=== PATIENT | female | born 1985 | race Caucasian/White ===

== ENCOUNTER → 2016-05-10 | Outpatient (CLI) | payer MEDICAID ==
[~2016-05-10] MED LIST: ANTIBIOTIC; BACTRIM DS 8001 TAB PO; CEFTIN 250250 MG/TAB PO; CEFTIN250 MG PO; CEFTIN500 MG PO; CEPHALEXIN500 M1 PO; CIPRO 500MG TA500 MG PO; CLEOCIN HC150 MG/CAP PO; IBU600 MG PO; LORTAB 5/500 501 TAB PO; MACROBID 1100 MG/CAP PO; MACROBID100 MG PO; MOTRIN 600600 MG/TAB PO; NAPROSYN500 MG PO; NO HOME MEDICATIONS; NORCO 325 MG-51 TAB PO; PERCOCET 325 MG1 TA2 PO; PREDNISONE20 MG PO; PRENATAL VITAMI1 TA5 PO; PRENATAL1 TA1 PO; PRENATAL1 TA7 PO; PYRIDIUM 100MG100 MG PO; PYRIDIUM200 M1 PO; SENOKOT S 50 MG1 TAB PO; VICODIN 5/5001 UDTAB PO; ZOFRAN 4MG T4 MG/TAB PO; ZOFRAN ODT4 MG PO
== END ==
LOC: COL.LAB 11:40
DX: O28.8 Other abnormal findings on antenatal screening of mother (principal); R76.8 Other specified abnormal immunological findings in serum; Z3A.34 34 weeks gestation of pregnancy

== ENCOUNTER 2016-06-09 20:46 | Inpatient (IN) | payer MEDICAID ==
[~2016-06-09] VITALS: Ht 167.6 cm; Wt 89.5 kg
[2016-06-09] VITALS (9 sets, daily range): BP systolic 104–121; BP diastolic 57–71; PULSE 86–103; TEMP 98–98.3
[2016-06-09 22:17] LABS: BASO # 0.1 (0.0-0.2); BASO % 0.4 % (0.0-2.0); EOS % 0.2 % (0-4.0); GRAN # 9.4 (1.4-6.5); LYMPH # 1.7 (1.2-3.4); LYMPH % 13.9 % (20.0-51.0); MEAN CELL VOLUME 94 fl (80.0-100.0); MEAN CORPUSCULAR HGB CONC 33 g/dl (33.0-37.0); MEAN PLATELET VOLUME 10.9 fl (7.4-10.4); MONO # 0.7 (0.1-0.6); MONO % 6.1 % (1.7-9.3); PLATELET COUNT 205 K/mm3 (130-400); RED BLOOD COUNT 3.56 M/mm3 (4.10-5.30); REDCELL DISTRIBUTION WIDTH-CV 14.8 % (11.5-14.5); WHITE BLOOD COUNT 12.1 K/mm3 (4.8-10.8)
[2016-06-09 22:20] LABS: HEMATOCRIT 33.5 % (37.0-47.0); HEMOGLOBIN 11.2 g/dl (12.5-16.0); MEAN CORPUSCULAR HEMOGLOBIN 31 pg (27.0-31.0)
[2016-06-09 22:39] LABS: AMPHETAMINE URINE NEGATIVE; BARBITURATES URINE NEGATIVE; BENZODIAZEPINES URINE NEGATIVE; BUPRENORPHINE URINE NEGATIVE; METHADONE URINE NEGATIVE; OPIATES URINE NEGATIVE; OXYCODONE URINE NEGATIVE; PHENCYCLIDINE URINE NEGATIVE; PROPOXYPHENE URINE NEGATIVE; THC CANNABINOIDS URINE POSITIVE
[2016-06-10] VITALS (12 sets, daily range): BP systolic 99–134; BP diastolic 54–76; PULSE 78–129; TEMP 97.2–98.2
== END 2016-06-10 19:55 | disposition home or self-care (01) | DRG 775 ==
LOC: LDRO 20:46 → LDR 21:15 → OB 06-10 04:00
PROVIDERS: Obstetrics & Gynecology
PROC: 10E0XZZ Delivery of Products of Conception, External Approach (ICD-10-PCS; principal; 2016-06-10)
DX: O77.0 Labor and delivery complicated by meconium in amniotic fluid (principal); O36.0130 Maternal care for anti-D [Rh] antibodies, third trimester, not applicable or unspecified; O99.324 Drug use complicating childbirth; F12.90 Cannabis use, unspecified, uncomplicated; O99.824 Streptococcus B carrier state complicating childbirth; O99.334 Smoking (tobacco) complicating childbirth; F17.210 Nicotine dependence, cigarettes, uncomplicated; O69.81X0 Labor and delivery complicated by cord around neck, without compression, not applicable or unspecified; O09.43 Supervision of pregnancy with grand multiparity, third trimester; Z3A.38 38 weeks gestation of pregnancy; Z37.0 Single live birth; Z59.0 Homelessness
CPT/HCPCS: J0690; J2590; J2791; J2795; J7120

== ENCOUNTER 2018-03-08 08:57 | Emergency (ER) | payer SELFPAY ==
[~2018-03-08] VITALS: Ht 165.1 cm; Wt 70.3 kg
[2018-03-08 09:01] VITALS: BP 123/68; TEMP 98
[2018-03-08 09:46] LABS: BASO % 0.5 % (0.0-2.0); EOS # 0.1 (0.0-0.7); EOS % 1.7 % (0-4.0); GRAN # 2.5 (1.4-6.5); HEMATOCRIT 41.2 % (37.0-47.0); HEMOGLOBIN 13.8 g/dl (12.5-16.0); LYMPH # 1.1 (1.2-3.4); LYMPH % 27.2 % (20.0-51.0); MEAN CELL VOLUME 93 fl (80.0-100.0); MEAN CORPUSCULAR HEMOGLOBIN 31 pg (27.0-31.0); MEAN CORPUSCULAR HGB CONC 34 g/dl (33.0-37.0); MONO # 0.4 (0.1-0.6); MONO % 9.4 % (1.7-9.3); PLATELET COUNT 234 K/mm3 (130-400); RED BLOOD COUNT 4.42 M/mm3 (4.10-5.30); REDCELL DISTRIBUTION WIDTH-CV 12.7 % (11.5-14.5)
[2018-03-08 09:48] LABS: COLLECTION METHOD CATHETER
[2018-03-08 09:59] LABS: MUCOUS Present /lpf; PH 5 (5-8); URINE APPEARANCE Hazy; URINE BACTERIA None Seen /hpf; URINE BILIRUBIN Negative (NEGATIVE); URINE BLOOD 2+ (NEGATIVE); URINE COLOR Yellow; URINE GLUCOSE Negative (NEGATIVE); URINE KETONE Negative (NEGATIVE); URINE LEUKOCYTE ESTERASE Negative (NEGATIVE); URINE NITRATE Negative (NEGATIVE); URINE PROTEIN(semi-quant) 1+ (NEGATIVE); URINE RBC 20-50 /hpf; URINE UROBILINOGEN Negative (NEGATIVE)
[2018-03-08 10:00] LABS: ALANINE AMINOTRANSFERASE 29 U/L (9-52); ALBUMIN 4.5 gm/dL (3.5-5.0); ALKALINE PHOSPHATASE 70 U/L (50-136); ANION GAP 9 mmol/L (7-16); AST,SGOT 23 U/L (15-37); BILIRUBIN,TOTAL 0.4 mg/dL (0.0-1.0); BLOOD UREA NITROGEN 18 mg/dL (7-17); CALCIUM 9.5 mg/dL (8.4-10.2); CARBON DIOXIDE 27 mmol/L (22-30); CHLORIDE 106 mmol/L (98-107); CREATININE, serum 0.59 mg/dL (0.52-1.25); GLUCOSE 97 mg/dL (74-106); SODIUM 142 mmol/L (137-145); TOTAL PROTEIN 8.2 gm/dL (6.4-8.2)
[2018-03-08 10:07] LABS: C-REACTIVE PROTEIN < 0.5 mg/dL (0.0-0.9)
[2018-03-08] MEDS ORDERED: PREDNISONE20 MG PO (10:54)
[2018-03-08] MEDS ORDERED: NORCO 325 MG-51 TAB PO (10:54)
[2018-03-08 11:22] VITALS: PULSE 93
== END 2018-03-08 11:23 | disposition home or self-care (01) ==
LOC: COL.ER 08:57
DX: M54.5 Low back pain (principal); F17.210 Nicotine dependence, cigarettes, uncomplicated; F12.90 Cannabis use, unspecified, uncomplicated; Z88.0 Allergy status to penicillin; Z88.2 Allergy status to sulfonamides
CPT/HCPCS: J1885; J7030

== ENCOUNTER 2018-10-18 10:20 | Emergency (ER) | payer SELFPAY ==
[~2018-10-18] VITALS: Ht 165.1 cm; Wt 79.5 kg
[2018-10-18 10:24] VITALS: BP 122/77; PULSE 102; TEMP 98.9
[2018-10-18] MEDS ORDERED: PRENATAL FORMU1 EAC3 PO (10:43)
== END 2018-10-18 11:19 | disposition left against medical advice (07) ==
LOC: COL.ER 10:20
DX: Z32.01 Encounter for pregnancy test, result positive (principal); F17.210 Nicotine dependence, cigarettes, uncomplicated; Z88.8 Allergy status to other drugs, medicaments and biological substances; Z88.0 Allergy status to penicillin

== ENCOUNTER 2018-10-18 12:41 | Emergency (ER) | payer SELFPAY ==
[~2018-10-18] VITALS: Ht 165.1 cm; Wt 79.5 kg
[~2018-10-18 12:41] MED LIST changes: +PRENATAL FORMU1 EAC3 PO
[2018-10-18 12:46] VITALS: BP 136/70; TEMP 98.3
[2018-10-18 13:10] LABS: BASO % 0.3 % (0.0-2.0); EOS # 0.1 (0.0-0.7); GRAN # 4.7 (1.4-6.5); GRAN % 74.3 % (42.2-75.2); LYMPH # 1.1 (1.2-3.4); LYMPH % 18.2 % (20.0-51.0); MEAN CELL VOLUME 92 fl (80.0-100.0); MEAN CORPUSCULAR HEMOGLOBIN 31 pg (27.0-31.0); MEAN CORPUSCULAR HGB CONC 34 g/dl (33.0-37.0); MEAN PLATELET VOLUME 9.1 fl (7.4-10.4); MONO # 0.4 (0.1-0.6); MONO % 5.9 % (1.7-9.3); PLATELET COUNT 203 K/mm3 (130-400); RED BLOOD COUNT 3.82 M/mm3 (4.10-5.30); REDCELL DISTRIBUTION WIDTH-CV 13.1 % (11.5-14.5)
[2018-10-18 13:11] LABS: HEMATOCRIT 35.3 % (37.0-47.0)
[2018-10-18 13:21] LABS: ALBUMIN 3.7 gm/dL (3.5-5.0); BILIRUBIN,TOTAL 0.2 mg/dL (0.0-1.0); CREATININE, serum 0.42 (0.52-1.25); POTASSIUM 3.3 mmol/L (3.4-5.0); TOTAL PROTEIN 6.8 gm/dL (6.4-8.2)
[2018-10-18 14:20] VITALS: PULSE 99
== END 2018-10-18 14:20 | disposition home or self-care (01) ==
LOC: COL.ER 12:41
PROVIDERS: Nurse Practitioner
DX: O36.4XX0 Maternal care for intrauterine death, not applicable or unspecified (principal); O99.332 Smoking (tobacco) complicating pregnancy, second trimester; Z3A.19 19 weeks gestation of pregnancy
CPT/HCPCS: J2791

== ENCOUNTER 2018-10-30 12:07 | Observation (INO) | payer MEDICAID ==
[~2018-10-30] VITALS: Ht 165.1 cm; Wt 72.7 kg
[2018-10-30] VITALS (8 sets, daily range): BP systolic 86–107; BP diastolic 54–61; PULSE 81–106; TEMP 98
[2018-10-30 12:40] LABS: HEMATOCRIT 39.6 % (37.0-47.0); HEMOGLOBIN 13.4 g/dl (12.5-16.0); MEAN CELL VOLUME 95 fl (80.0-100.0); MEAN CORPUSCULAR HEMOGLOBIN 32 pg (27.0-31.0); MEAN CORPUSCULAR HGB CONC 34 g/dl (33.0-37.0); MEAN PLATELET VOLUME 9.8 fl (7.4-10.4); PLATELET COUNT 238 K/mm3 (130-400); RED BLOOD COUNT 4.19 M/mm3 (4.10-5.30); REDCELL DISTRIBUTION WIDTH-CV 13.3 % (11.5-14.5)
[2018-10-30 12:52] LABS: CALCIUM 9.2 mg/dL (8.4-10.2); CREATININE, serum 0.43 (0.52-1.25); POTASSIUM 3.2 mmol/L (3.4-5.0)
[2018-10-30 13:45] LABS: LYMPHOCYTE 6 % (20.0-51.0); NEUTROPHILS 93 % (42.0-75.2); PLATELET ESTIMATE NORMAL (NORMAL)
[2018-10-30] MEDS ORDERED: IBU800 M1 PO (14:02)
--- NOTE | 2018-10-30 14:30 | NUR ---
Comes to our unit from o.r. Rests in bed with eyes closed. Nibp on right arm. Awakens with verbal stimuli. Report given by
--- NOTE | 2018-10-30 14:45 | NUR ---
Continues to rest in bed with eyes closed. Resperations even and unlabored.
--- NOTE | 2018-10-30 15:15 | NUR ---
Rests in bed, alert with verbal stimuli. Laurel-pad checked, small amount of red color drainage noted.
--- NOTE | 2018-10-30 16:15 | NUR ---
Rests in bed with eyes closed. Awakens with verbal stimuli. Denies any needs at this time.
--- NOTE | 2018-10-30 17:15 | NUR ---
Awakens enough to eat cracker. Then goes back to sleep.
== END 2018-10-30 19:45 | disposition home or self-care (01) ==
LOC: COL.ER 12:07 → OB 13:56
PROVIDERS: Emergency Medicine; ADMIT Obstetrics & Gynecology
DX: O02.89 Other abnormal products of conception (principal); F17.210 Nicotine dependence, cigarettes, uncomplicated; Z88.0 Allergy status to penicillin; Z88.2 Allergy status to sulfonamides; Z87.442 Personal history of urinary calculi
CPT/HCPCS: G0378; J0690; J2210; J2250; J2370; J2704; J3010; J7030; J7120

== ENCOUNTER 2020-07-20 07:28 | Inpatient (IN) | payer SELFPAY ==
[~2020-07-20] VITALS: Ht 167.6 cm; Wt 68.2 kg
[~2020-07-20 07:28] MED LIST changes: +IBU800 M1 PO
[2020-07-20 08:30] LABS: BASO % 0.2 % (0.0-2.0); EOS % 0.2 % (0-4.0); GRAN # 8.6 (1.4-6.5); HEMATOCRIT 37.4 % (37.0-47.0); LYMPH # 0.8 (1.2-3.4); LYMPH % 7.5 % (20.0-51.0); MEAN CELL VOLUME 91 fl (80.0-100.0); MEAN CORPUSCULAR HEMOGLOBIN 29 pg (27.0-31.0); MEAN CORPUSCULAR HGB CONC 32 g/dl (33.0-37.0); MEAN PLATELET VOLUME 10.1 fl (7.4-10.4); MONO # 0.6 (0.1-0.6); MONO % 5.7 % (1.7-9.3); PLATELET COUNT 255 K/mm3 (130-400); RED BLOOD COUNT 4.12 M/mm3 (4.10-5.30)
[2020-07-20 08:41] LABS: ALBUMIN 4.2 gm/dL (3.5-5.0); BILIRUBIN,TOTAL 0.4 mg/dL (0.0-1.0); CALCIUM 9.2 mg/dL (8.4-10.2); CREATININE, serum 0.54 (0.52-1.25); POTASSIUM 3.9 mmol/L (3.4-5.0); TOTAL PROTEIN 8.2 gm/dL (6.4-8.2)
[2020-07-20 08:44] LABS: COLLECTION METHOD CLEAN CATCH
[2020-07-20 08:52] LABS: MUCOUS Present /lpf; PH 6 (5-8); SQUAMOUS EPITHELIAL 0-2 /hpf; URINE APPEARANCE Clear; URINE BACTERIA None Seen /hpf; URINE BILIRUBIN Negative (NEGATIVE); URINE BLOOD Negative (NEGATIVE); URINE COLOR Yellow; URINE GLUCOSE Negative (NEGATIVE); URINE KETONE 1+ (NEGATIVE); URINE LEUKOCYTE ESTERASE Negative (NEGATIVE); URINE NITRATE Negative (NEGATIVE); URINE PROTEIN(semi-quant) Negative (NEGATIVE); URINE RBC 0-2 /hpf; URINE UROBILINOGEN Negative (NEGATIVE)
[2020-07-20 09:48] LABS: TRICYCLIC ANTIDEPRESS URINE NEGATIVE
[2020-07-20 11:52] VITALS: BP 117/78; PULSE 111; TEMP 98.3
[2020-07-20 15:38] VITALS: BP 109/51; PULSE 106; TEMP 98.8
--- NOTE | 2020-07-20 17:58 | NUR ---
Pt R foot has been elevated on pillows. Since arrival this afternoon to floor redness has extended from simple streaking on foot and one streak on lazaro to become generalized redness and warmth over most of lazaro and calf. Called BAN Martinez and she notified Dr. Tyson of this, he states he may come see her tonight before leaving. Pt feeling anxious, provided PRN atarax, prn pain medications provided as well for pain in RLE. IVF to R hand. Pt using BSC for bathroom but otherwise on bedrest. Will continue to monitor and give bedside shift report to nightshift nruse who will resume care.
[2020-07-20 19:57] VITALS: BP 118/70; PULSE 102; TEMP 99.9
[2020-07-20 20:11] LABS: MEAN CELL VOLUME 91 fl (80.0-100.0); MEAN CORPUSCULAR HEMOGLOBIN 30 pg (27.0-31.0); MEAN CORPUSCULAR HGB CONC 33 g/dl (33.0-37.0); PLATELET COUNT 216 K/mm3 (130-400); RED BLOOD COUNT 3.73 M/mm3 (4.10-5.30); REDCELL DISTRIBUTION WIDTH-CV 15.9 % (11.5-14.5)
[2020-07-20 20:14] LABS: HEMATOCRIT 33.8 % (37.0-47.0)
[2020-07-21] VITALS (8 sets, daily range): BP systolic 101–118; BP diastolic 52–65; PULSE 82–104; TEMP 97.4–98.5
--- NOTE | 2020-07-21 06:29 | NUR ---
PATIENT REPORTED HAVING A HEADACHE LAST NIGHT. PRN PAIN MEDICATION ADMINISTERED AND PATIENT RESTED QUIETLY IN BED. NO OTHER ISSUES NOTED OR REPORTED BY PATIENT. RIGHT LEG ELEVATED THROUGHOUT THE NIGHT.
[2020-07-21 07:31] LABS: BASO % 0.3 % (0.0-2.0); EOS # 0.1 (0.0-0.7); EOS % 1.3 % (0-4.0); GRAN # 5.3 (1.4-6.5); GRAN % 77.5 % (42.2-75.2); HEMOGLOBIN 10.4 g/dl (12.5-16.0); LYMPH # 0.9 (1.2-3.4); LYMPH % 12.7 % (20.0-51.0); MEAN CELL VOLUME 92 fl (80.0-100.0); MEAN CORPUSCULAR HEMOGLOBIN 29 pg (27.0-31.0); MEAN CORPUSCULAR HGB CONC 31 g/dl (33.0-37.0); MEAN PLATELET VOLUME 11.7 fl (7.4-10.4); MONO # 0.5 (0.1-0.6); MONO % 7.8 % (1.7-9.3); PLATELET COUNT 186 K/mm3 (130-400); RED BLOOD COUNT 3.62 M/mm3 (4.10-5.30); REDCELL DISTRIBUTION WIDTH-CV 15.8 % (11.5-14.5)
[2020-07-21 07:40] LABS: HEMATOCRIT 33.2 % (37.0-47.0)
[2020-07-21 07:48] LABS: ALANINE AMINOTRANSFERASE 12 U/L (4-34); ALKALINE PHOSPHATASE 59 U/L (50-136); ANION GAP 4 mmol/L (7-16); AST,SGOT 18 U/L (15-37); BILIRUBIN,TOTAL < 0.1 mg/dL (0.0-1.0); BLOOD UREA NITROGEN 7 mg/dL (7-17); CALCIUM 8.4 mg/dL (8.4-10.2); CARBON DIOXIDE 27 mmol/L (22-30); CHLORIDE 101 mmol/L (98-107); CREATININE, serum 0.46 (0.52-1.25); GLUCOSE 113 mg/dL (74-106); POTASSIUM 3.9 mmol/L (3.4-5.0); SODIUM 132 mmol/L (137-145); TOTAL PROTEIN 6.1 gm/dL (6.4-8.2)
--- NOTE | 2020-07-21 08:38 | NUR ---
Pt. laying in bed, A/O x4, Pt. states her right foot is in pain and rates the pain 7 to 8 out of 10. Nurse asked patient if she would like to reposition, she denies. Pt. requests pain medication to alleviate pain and discomfort and pt. stated "something stronger than tylenol". V/S stable, medication administered, will continue to monitor. Call light within reach.
--- NOTE | 2020-07-21 09:04 | NUR ---
JAQUELINE met with the patient and her friend, Aldo, to discuss discharge plan. The patient appeared agitated after JAQUELINE introduced herself. She states that people keep coming in her room and she does not want anyone else coming in until noon. JAQUELINE began asking intake questions and the patient refused to answer. She had a scratch ticket and was working on it. Aldo reports that the patient lives in [place] with her. He reports that she is independent with ADLs and does not have any DME. The patient does not have a PCP. Aldo states that when primary care is needed, she usually goes to the [facility]. JAQUELINE discussed [facility] in [place] and [facility] for primary care. The patient states that she is not interested in getting set up at [facility]. JAQUELINE inquired about [facility] and pharmacy, but the patient became agitated again and reports that she does not need any help and told this SW to get the hell out. JAQUELINE was unable to discuss or offer any resources for drug use. *Discharge plan: home with friend*
--- NOTE | 2020-07-21 10:52 | NUR ---
Initial visit; Patient thanked Inspector Brake Lining for looking in on her and wishing her well.
--- NOTE | 2020-07-21 13:50 | NUR ---
Primary nurse was assisted with [phone] patient care by [employer] student Annabelle Michelle and [employer] instructor Gris Funez MSN, RN.
--- NOTE | 2020-07-21 16:07 | NUR ---
PT notified JAQUELINE that the patient is interested in obtaining a FWW. SW met with the patient to follow up on this. The patient is interested in getting a FWW from [facility]. JAQUELINE contacted and faxed the FWW order to Arely at [facility].
--- NOTE | 2020-07-21 17:14 | NUR ---
Pt. laying in bed, A/O x4, difficult to motivate. Nurse educated patient on plan of care, and requested she go for a walk with the nurse as it was ordered to try to get her moving on both feet. Patient states " I will only walk to the toilet and that's about it." Nurse informed pt. on importance of compliance and reminded pt. to call nurse to ambulate. Pt. denies any additional needs at this time. Call light within reach.
[2020-07-22 04:15] VITALS: BP 111/54; PULSE 94; TEMP 98.2
--- NOTE | 2020-07-22 05:21 | NUR ---
PATIENT CALM, COOPERATIVE, AND SLEPT THROUGHOUT THE NIGHT. FOOT ELEVATED ON PILLOWS. NO NEW ISSUES NOTED OR REPORTED BY PATIENT.
[2020-07-22 06:12] LABS: BASO % 0.2 % (0.0-2.0); EOS # 0.1 (0.0-0.7); EOS % 1.9 % (0-4.0); GRAN # 3.8 (1.4-6.5); GRAN % 66.7 % (42.2-75.2); HEMATOCRIT 37.4 % (37.0-47.0); HEMOGLOBIN 11.6 g/dl (12.5-16.0); LYMPH # 1.2 (1.2-3.4); LYMPH % 20.3 % (20.0-51.0); MEAN CELL VOLUME 93 fl (80.0-100.0); MEAN CORPUSCULAR HEMOGLOBIN 29 pg (27.0-31.0); MEAN CORPUSCULAR HGB CONC 31 g/dl (33.0-37.0); MEAN PLATELET VOLUME 11.3 fl (7.4-10.4); MONO # 0.6 (0.1-0.6); MONO % 10.4 % (1.7-9.3); PLATELET COUNT 230 K/mm3 (130-400); RED BLOOD COUNT 4.04 M/mm3 (4.10-5.30)
[2020-07-22 06:20] LABS: CALCIUM 8.8 mg/dL (8.4-10.2); CREATININE, serum 0.44 (0.52-1.25); POTASSIUM 4.2 mmol/L (3.4-5.0)
[2020-07-22 08:40] VITALS: BP 141/72; PULSE 87; TEMP 98.3
[2020-07-22] MEDS ORDERED: AMOXICILLIN 8751 TAB PO (09:27)
[2020-07-22] MEDS ORDERED: NORCO 325 MG-51 TAB PO (09:28)
[2020-07-22] MEDS ORDERED: CLEOCIN HCL300 MG PO (09:28)
--- NOTE | 2020-07-22 10:38 | NUR ---
Pt. sitting up in bed, A/O x4 with pt.'s support person bed side and provider reviewing POC with both. Upon provider exiting, Pt. and SPOA got into a heated discussion regarding pt.'s pants not fitting and not having others available. Pt.'s SPOA stated " I will not come back to give you pants, find your way home" and exited the room. Pt. proceeded to throw her glass vase full of maradiaga and water at wall. Medical Doctor was able to immediately clean the glass off the floor. Nurse provided scrub pants and informed pt. she will seek SW guidance to get pt. home after discharge. Will f/u with pt. Call light within reach. Pt. expresses no additional needs at this time.
[2020-07-22 11:36] VITALS: BP 105/56; PULSE 94; TEMP 98.3
--- NOTE | 2020-07-22 12:04 | NUR ---
JAVON delivered the FWW to the patient's room. The patient's RN notified JAQUELINE that the patient's friend left and is not coming back to transport the patient home. JAQUELINE contacted the patient's insurance, Medicaid [employer], to schedule transportation home. The retail center receptionist reports that they cannot find the patient in their system. JAQUELINE met with the patient to follow up. The patient reports that she does not have Medicaid at this time, but will again on July 30. She states that she has tried calling her friend, but he did not answer. She reports that she cannot afford a taxi and even if she did, she would not pay for it. JAQUELINE provided the patient's RN with a taxi voucher to get home. No additional needs at this time.
--- NOTE | 2020-07-22 12:59 | NUR ---
Pt. sitting in bed, A/O x4, uncooperative and verbally hostile. Nurse called transportation to transport patient home. Molding Cutter informed nurse she would arrive within 15 minutes, nurse informed pt. of picker feeder time, Pt. stated " okay. " Nurse educated and informed pt. of all relevant dicharge instructions and follow up appointment scheduleing. IV INT right hand DC/d. Pt. became verbally hostile after nurse informed pt. transportation had arrived.Pt became verbally hostile and told nurse to " F off" because she had not received her lunch. Pt. proceeded to throw commode onto to the floor, causing a spillage. Nurse brought a sandwich box for pt. and escorted her out of the building with additional [facility] staff.
== END 2020-07-22 12:55 | disposition home or self-care (01) | DRG 872 ==
LOC: COL.ER 07:28 → MEDICAL 10:05
PROVIDERS: Family Medicine; Physician Assistant
DX: A40.9 Streptococcal sepsis, unspecified (principal); L03.116 Cellulitis of left lower limb; E87.1 Hypo-osmolality and hyponatremia; F17.210 Nicotine dependence, cigarettes, uncomplicated; F15.10 Other stimulant abuse, uncomplicated; Z88.0 Allergy status to penicillin; Z88.2 Allergy status to sulfonamides
CPT/HCPCS: 99223-AI; 99233-AI; J0690; J0692; J1170; J1644; J7030; J7120

== ENCOUNTER → 2020-11-03 | Emergency (ER) | payer MEDICAID ==
[~2020-11-03] VITALS: Ht 162.6 cm; Wt 87.3 kg
[~2020-11-03] MED LIST changes: +AMOXICILLIN 8751 TAB PO; +CLEOCIN HCL300 MG PO
[2020-11-03 15:12] VITALS: BP 108/64; PULSE 106; TEMP 98.2
[2020-11-03 15:38] LABS: COLLECTION METHOD CLEAN CATCH
[2020-11-03 15:45] LABS: MUCOUS Present /lpf; PH 6 (5-8); URINE APPEARANCE Hazy; URINE BACTERIA Rare /hpf; URINE BILIRUBIN Negative (NEGATIVE); URINE BLOOD Negative (NEGATIVE); URINE COLOR Yellow; URINE GLUCOSE Negative (NEGATIVE); URINE KETONE Negative (NEGATIVE); URINE LEUKOCYTE ESTERASE Negative (NEGATIVE); URINE NITRATE Negative (NEGATIVE); URINE PROTEIN(semi-quant) Negative (NEGATIVE); URINE RBC 0-2 /hpf; URINE UROBILINOGEN Negative (NEGATIVE)
[2020-11-03 16:49] LABS: BASO % 0.3 % (0.0-2.0); EOS # 0.1 (0.0-0.7); GRAN # 4.1 (1.4-6.5); LYMPH # 1.1 (1.2-3.4); LYMPH % 18.8 % (20.0-51.0); MEAN CELL VOLUME 93 fl (80.0-100.0); MEAN CORPUSCULAR HEMOGLOBIN 30 pg (27.0-31.0); MEAN CORPUSCULAR HGB CONC 33 g/dl (33.0-37.0); MEAN PLATELET VOLUME 10.8 fl (7.4-10.4); MONO # 0.5 (0.1-0.6); MONO % 8.6 % (1.7-9.3); PLATELET COUNT 228 K/mm3 (130-400); RED BLOOD COUNT 4.64 M/mm3 (4.10-5.30); REDCELL DISTRIBUTION WIDTH-CV 14.3 % (11.5-14.5)
[2020-11-03 17:12] LABS: ALBUMIN 4.7 gm/dL (3.5-5.0); BILIRUBIN,TOTAL 0.3 mg/dL (0.0-1.0); C-REACTIVE PROTEIN 0.7 mg/dL (0.0-0.9); CALCIUM 9.2 mg/dL (8.4-10.2); CREATININE, serum 0.49 (0.52-1.25); POTASSIUM 3.8 mmol/L (3.4-5.0); TOTAL PROTEIN 8.4 gm/dL (6.4-8.2)
== END ==
LOC: COL.ER 14:25
PROVIDERS: Emergency Medicine; Nurse Practitioner Primary Care
DX: O26.891 Other specified pregnancy related conditions, first trimester (principal); R10.13 Epigastric pain; R51.9 Headache, unspecified; Z3A.00 Weeks of gestation of pregnancy not specified
CPT/HCPCS: J7030

== ENCOUNTER 2021-02-03 17:42 | Emergency (ER) | payer MEDICAID | END 2021-02-03 19:31 | disposition left against medical advice (07) | LOC: COL.ER 17:42 | DX: R52 Pain, unspecified (principal) ==

== ENCOUNTER 2021-03-08 10:16 | Outpatient (CLI) | payer MEDICAID ==
[~2021-03-08] VITALS: Wt 92.3 kg
[2021-03-08 10:30] VITALS: BP 115/57; PULSE 88; TEMP 98
[2021-03-08 11:00] VITALS: BP 104/58; PULSE 81
[2021-03-08 11:28] LABS: COLLECTION METHOD CLEAN CATCH
[2021-03-08 11:30] VITALS: BP 105/53; PULSE 77
[2021-03-08 11:34] LABS: MUCOUS Present (NOT PRESENT); PH 7 (5-8); URINE APPEARANCE Clear (CLEAR/HAZY); URINE BACTERIA None Seen (NONE SEEN); URINE BILIRUBIN Negative (NEGATIVE); URINE BLOOD Negative (NEGATIVE); URINE COLOR Straw (YELLOW); URINE GLUCOSE Negative (NEGATIVE); URINE KETONE Negative (NEGATIVE); URINE LEUKOCYTE ESTERASE Negative (NEGATIVE); URINE NITRATE Negative (NEGATIVE); URINE PROTEIN(semi-quant) Negative (NEGATIVE); URINE RBC None Seen /hpf (0-2); URINE UROBILINOGEN Negative (NEGATIVE); URINE WBC 0-2 /hpf (0-2)
--- NOTE | 2021-03-08 13:00 | NUR ---
Pt arrives on unit with EMS on stretcher. Complains of lower abdominal pain. Pt denies any vaginal bleeding, leaking of fluid, or regular contractions. States she was worried about decreased movement but is now feeling baby move. FHR monitor/TOCO applied. Discusses care of plan with pt. Will continue to monitor.
== END 2021-03-08 12:00 ==
LOC: LDRO 10:16
PROVIDERS: Obstetrics & Gynecology
DX: O36.8120 Decreased fetal movements, second trimester, not applicable or unspecified (principal); O26.892 Other specified pregnancy related conditions, second trimester; R10.30 Lower abdominal pain, unspecified; Z3A.26 26 weeks gestation of pregnancy

== ENCOUNTER 2021-04-06 11:31 | Outpatient (CLI) | payer MEDICAID ==
[~2021-04-06] VITALS: Ht 162.6 cm; Wt 87.7 kg
--- NOTE | 2021-04-06 11:35 | NUR ---
Pt arrived on unit via wheelchair to "have baby checked out" after falling down the stairs. Pt reports falling feet first down the stairs on Saturday. Pt reports she did not hit her belly during the fall. Pt denies any contractions, leaking of fluid or vaginal bleeding and pt reports normal movement. EFM and toco monitors started. Vital signs WNL. Dr. Bosch on the unit. FHR tracing reviewed. Orders for discharge home received. Pt reports she is concerned about her back and tailbone being sore after falling and requesting to be seen in the ED for evaluation. Pt taken via wheelchair back to ED admissions for evaluation.
[2021-04-06] MEDS ORDERED: PRENATAL (11:53)
[2021-04-06 12:02] VITALS: BP 116/64; PULSE 83; TEMP 97.9
== END 2021-04-06 12:14 | disposition home or self-care (01) ==
LOC: LDRO 11:31
DX: Z34.93 Encounter for supervision of normal pregnancy, unspecified, third trimester (principal); Z3A.30 30 weeks gestation of pregnancy

== ENCOUNTER 2021-04-06 12:16 | Emergency (ER) | payer MEDICAID ==
[~2021-04-06] VITALS: Ht 162.6 cm; Wt 95.5 kg
[~2021-04-06 12:16] MED LIST changes: +PRENATAL
[2021-04-06 12:22] VITALS: BP 101/65; PULSE 92; TEMP 98.2
== END 2021-04-06 13:12 | disposition home or self-care (01) ==
LOC: COL.ER 12:16
DX: O9A.213 Injury, poisoning and certain other consequences of external causes complicating pregnancy, third trimester (principal); S80.11XA Contusion of right lower leg, initial encounter; O99.333 Smoking (tobacco) complicating pregnancy, third trimester; F17.210 Nicotine dependence, cigarettes, uncomplicated; Z3A.00 Weeks of gestation of pregnancy not specified; W10.8XXA Fall (on) (from) other stairs and steps, initial encounter

== ENCOUNTER 2021-04-13 02:34 | Emergency (ER) | payer MEDICAID ==
[~2021-04-13] VITALS: Ht 162.6 cm; Wt 95.5 kg
[2021-04-13 02:34] VITALS: TEMP 99
[2021-04-13 02:45] LABS: HEMOGLOBIN 11.7 g/dl (12.5-16.0); MEAN CELL VOLUME 95 fl (80.0-100.0); MEAN CORPUSCULAR HEMOGLOBIN 32 pg (27-31); MEAN CORPUSCULAR HGB CONC 34 g/dl (33.0-37.0); MEAN PLATELET VOLUME 10.1 fl (7.4-10.4); PLATELET COUNT 209 K/mm3 (130-400); RED BLOOD COUNT 3.64 M/mm3 (4.10-5.30); REDCELL DISTRIBUTION WIDTH-CV 13.6 % (11.5-14.5)
[2021-04-13 02:51] LABS: HEMATOCRIT 34.4 % (37.0-47.0)
[2021-04-13 03:01] LABS: ALBUMIN 3.1 gm/dL (3.5-5.0); BILIRUBIN,TOTAL 0.5 mg/dL (0.2-1.2); CALCIUM 8.5 mg/dL (8.4-10.2); CREATININE, serum 0.65 mg/dL (0.57-1.11); POTASSIUM 3.4 mmol/L (3.5-4.5); TOTAL PROTEIN 7.1 gm/dL (6.2-8.1)
[2021-04-13 03:23] LABS: BAND 4 % (0-10); LYMPHOCYTE 11 % (20.0-51.0); NEUTROPHILS 83 % (42.0-75.2)
[2021-04-13 03:24] LABS: PLATELET ESTIMATE NORMAL (NORMAL)
[2021-04-13 03:27] LABS: COLLECTION METHOD CLEAN CATCH
[2021-04-13 03:37] LABS: MUCOUS Present (NOT PRESENT); PH 5 (5-8); SQUAMOUS EPITHELIAL 20-50 /hpf (0-10); URINE APPEARANCE Cloudy (CLEAR/HAZY); URINE BACTERIA Rare /hpf (NONE SEEN); URINE BILIRUBIN Negative (NEGATIVE); URINE BLOOD Negative (NEGATIVE); URINE COLOR Yellow (YELLOW); URINE GLUCOSE Negative (NEGATIVE); URINE KETONE 2+ (NEGATIVE); URINE LEUKOCYTE ESTERASE Negative (NEGATIVE); URINE NITRATE Negative (NEGATIVE); URINE PROTEIN(semi-quant) 2+ (NEGATIVE); URINE RBC 0-2 /hpf (0-2); URINE UROBILINOGEN Negative (NEGATIVE)
[2021-04-13 04:21] VITALS: BP 100/46; PULSE 97
== END 2021-04-13 04:21 | disposition home or self-care (01) ==
LOC: COL.ER 02:34
PROVIDERS: Emergency Medicine
DX: O98.513 Other viral diseases complicating pregnancy, third trimester (principal); U07.1 COVID-19; O26.893 Other specified pregnancy related conditions, third trimester; E87.2 Acidosis; T73.0XXA Starvation, initial encounter; Z3A.00 Weeks of gestation of pregnancy not specified
CPT/HCPCS: J2765; J7030

== ENCOUNTER → 2021-04-15 | Emergency (ER) | payer MEDICAID | LOC: COL.ER 17:40 | DX: Z00.8 Encounter for other general examination (principal) ==

== ENCOUNTER 2021-06-06 05:43 | Inpatient (IN) | payer MEDICAID ==
[~2021-06-06] VITALS: Ht 162.6 cm; Wt 103.6 kg
[2021-06-06] VITALS (63 sets, daily range): BP systolic 103–158; BP diastolic 57–686; PULSE 72–105; TEMP 97.9–98.8
--- NOTE | 2021-06-06 06:00 | NUR ---
[facility] ARRIVES AMBULATORY TO UNIT @ 0545. THIS NURSE AT BEDSIDE ASSESSING PT AT BEGINNING OF SHIFT. PT DENIES LEAKING OF FLUID AND CONTRACTIONS. REPORTS POSITIVE MOVEMENT. CATEGORY 1 STRIP TRACING AT THIS TIME, NO CONTRACTIONS NOTED.
[2021-06-06 07:04] LABS: BASO % 0.3 % (0.0-2.0); EOS # 0.1 K/mm3 (0.0-0.7); GRAN # 5.8 K/mm3 (1.4-6.5); GRAN % 72.7 % (42.2-75.2); HEMOGLOBIN 12.4 g/dl (12.5-16.0); LYMPH # 1.5 K/mm3 (1.2-3.4); MEAN CELL VOLUME 94 fl (80.0-100.0); MEAN CORPUSCULAR HEMOGLOBIN 32 pg (27-31); MEAN CORPUSCULAR HGB CONC 34 g/dl (33.0-37.0); MEAN PLATELET VOLUME 11.3 fl (7.4-10.4); MONO # 0.5 K/mm3 (0.1-0.6); MONO % 6.2 % (1.7-9.3); PLATELET COUNT 175 K/mm3 (130-400); RED BLOOD COUNT 3.85 M/mm3 (4.10-5.30); REDCELL DISTRIBUTION WIDTH-CV 14.2 % (11.5-14.5)
[2021-06-06 07:15] LABS: TRICYCLIC ANTIDEPRESS URINE NEGATIVE
[2021-06-06 07:18] LABS: HEMATOCRIT 36.2 % (37.0-47.0)
--- NOTE | 2021-06-06 09:00 | NUR ---
AT BEDSIDE. BS ULTRASOUND PERFORMED. VERTEX PRESENTATION CONFIRMED. SVE /-3. PT REMAINS INTACT, NO AROM AT THIS TIME. EDUCATES PT THAT HE WILL REASSESS OVER HIS LUNCH HOUR AND ATTEMPT AROM AT THAT TIME. PT DENIES QUESTIONS OR CONCERNS.
--- NOTE | 2021-06-06 09:00 | NUR ---
PT UP TO RESTROOM TO VOID, RETURNS TO BED, DIFFICULTY TRACING EFM UPON RETURNING TO BED DUE TO MATERNAL POSITIONING AND HABITUS. AT BEDSIDE WITH BEDSIDE ULTRASOUND UPON THIS ENCOUNTER ASSISTING TO FIND FHT.
--- NOTE | 2021-06-06 12:30 | NUR ---
PT SITTING ON EDGE OF BED FOR EPIDURAL PLACEMENT. DIFFICULTY TRACING EFM DUE TO MATERNAL POSITIONING. 1228: TEST DOSE PER ISA OCONNOR. PT TOLERATED PROCEDURE WELL.
--- NOTE | 2021-06-06 18:21 | NUR ---
REPORT TO THALIA ORTEZ AT THIS TIME
--- NOTE | 2021-06-06 19:30 | NUR ---
Reviewed plan of care and temporary change of OB coverage. Verbalizes understanding.
--- NOTE | 2021-06-06 19:55 | NUR ---
pt tearful. FOB quiet at bedside. Pt states "he has to go back to the longterm soon. Nobody will be here with me when I deliver". Emotional support given.
[2021-06-07] VITALS (15 sets, daily range): BP systolic 103–138; BP diastolic 53–85; PULSE 68–99; TEMP 97.3–98.8
--- NOTE | 2021-06-07 01:30 | NUR ---
Pt states "a bunch of stuff just came out" SVE as noted.
--- NOTE | 2021-06-07 02:00 | NUR ---
SVE complete/0 station.
--- NOTE | 2021-06-07 02:24 | NUR ---
Dr Bosch into room. Pet set up for delivery. [address] Bosch.
--- NOTE | 2021-06-07 02:35 | NUR ---
Placenta delivers spont and intact with 3 vessell cord. Pitocin gtt to bolus rate. Perineal inspection by Dr Bosch complete, no lacerations. Pericare completed. Icepack to perineum, bed together.
--- NOTE | 2021-06-07 03:30 | NUR ---
Pt reports "I took that blood pressure cuff off because it was annoying me" explained to pt the rationale for continuing to monitor BP in recovery period. Pt states "it still bothers me"
--- NOTE | 2021-06-07 04:30 | NUR ---
Pt able to move legs, but not maintain leg lift. Instructed pt that she is not to get out of bed without staff assistance. Pt asks "why not? even if I think I can?" Repeated to pt that she is not to get up without staff person present.
--- NOTE | 2021-06-07 05:30 | NUR ---
stands at bedside, reports "L leg a little weak" To bathroom via wheelchair. Pivot transfers self to toilet. Pt instructed to not get up until I get back into room. Nure out of room briefly(< 5 minutes). Upon nurse's return into room, pt standing in front of toilet holding onto rail. Pt states "I was just trying to get my legs back> I was standing over toilet in case my legs gave out I could just sit down." Performs own pericare, tuinocencia application. Clean gown on and ambulates to room with standby assist.
--- NOTE | 2021-06-07 09:08 | NUR ---
0830THIS RN AT BEDSIDE TO CHECK ON PATIENT. PATIENT ASLEEP IN BED WITH BABE. PATIENT EDUCATED ON SAFE SLEEP.
--- NOTE | 2021-06-07 09:48 | NUR ---
Initial visit; Patient thanked [employer] Chief for looking in on her and offering congratulations and God's blessings for the of her daughter.
--- NOTE | 2021-06-07 10:00 | NUR ---
0945NOTIFIED THAT PATIENT REQUESTING TO SPEAK WITH THIS RN. 0950RN AT BEDSIDE SPEAKING WITH PATIENT. PATIENT CONCERNED ABOUT SOCIAL WORKERS IN ROOM. PATIENT STATES THAT SHE IS "WORRIED THAT ALL HER HARD WORK SHE HAS DONE OVER THE LAST YEAR WAS ALL FOR NOTHING IF THEY TAKE HER BABY AWAY." THIS RN REASSURED PATIENT THAT ALL HER HARD WORK WAS NOT FOR NOTHING. PATIENT ASKING HOW SOCIAL WORK KNEW SHE WAS IN [facility] AND HER BOYFRIEND. RN INFORMED PATIENT THAT THAT INFORMATION CAN BE FOUND IN HER PATIENT RECORD. SHE FELT THAT THE SOCIAL WORKERS WERE VERY ACCUSING HER AND "IT WAS ONLY MAKING ME FEEL WORSE." PATIENT TEARFUL AT THIS TIME WELL. PATIENT COMFORTED. PATIETN REQUEST THAT BABE GO TO NURSERY. PATIENT REQUEST TO GO OUTSIDE TO SMOKE. RN VERIFIED THAT PATIENT DID NOT HAVE AN IV IN PLACE. THIS RN TOOK BABY TO NURSERY AT 1000.
--- NOTE | 2021-06-07 10:41 | NUR ---
JAQUELINE and JAQUELINE student responded to consult. The patient has a history of drug use and was just released from care home. She also has five children. One was adopted out and the other four are not in her custody. JAQUELINE and JAQUELINE student met with the patient. She was holding and feeding the baby. The patient lives alone in [place]. She appeared guarded when JAQUELINE asked to confirm her home address. The The patient states that she has a carseat and crib for baby. She states that she has not applied for WIC, but has their number. The patient's UDS was negative. The patient states that she has been clean and does not have any concerns about using drugs when she brings the baby home. She states that she has a human resources officer, Eleni Blackman, from [facility] and that we can call and check with her if needed. JAQUELINE addressed the patient's recent incarceration. The patient appeared upset that SW knew she had been incarcerated and asked how I knew. The patient states that she had to serve 20 days at [facility] and this was from May 15-June 03. She states that the father of the baby is still incarcerated until June 26. He was able to get furlough yesterday to be with her, but had to return back to care home yesterday evening. The patient had no concerns about bringing baby home. JAQUELINE provided the patient with [facility]'s Resource Guide. JAQUELINE updated the patient's RN on the above. The baby's cord blood is pending. JAQUELINE attempted to contact the patient's probabation officer, Eleni Blackman (ph#[phone]), to follow up. Her voicemail states that she will be out of the office until June 12 and to contact the main office. JAQUELINE attempted to contact the main office. JAQUELINE left them a voicemail. JAQUELINE made a CPS report. Intake ID#[id number].
[2021-06-07] MEDS ORDERED: IBU600 MG PO (10:45)
--- NOTE | 2021-06-07 15:28 | NUR ---
milk processing worker met with patient, per her request, and offered support and discussed social work intake questions/assessment.
[2021-06-08 01:00] VITALS: BP 113/59; PULSE 74; TEMP 97.9
[2021-06-08 04:30] VITALS: BP 117/58; PULSE 72; TEMP 97.6
[2021-06-08 07:45] VITALS: BP 124/78; PULSE 82; TEMP 97.8
[2021-06-08 21:00] VITALS: BP 125/70; PULSE 78; TEMP 98.1
[2021-06-09 07:15] VITALS: BP 120/76; PULSE 75; TEMP 97.5
--- NOTE | 2021-06-09 11:45 | NUR ---
1145- Discharge paperwork given and explained. Pt denies questions. Bands verified and Mom to boarder status. Infant to nursery, Pt ambulates off unit independently to catch ride to [place] to get formula and supplies for baby.
== END 2021-06-09 11:45 | disposition home or self-care (01) | DRG 807 ==
LOC: LDR 05:43 → OB 05:43
PROVIDERS: ADMIT Obstetrics & Gynecology
PROC: 10E0XZZ Delivery of Products of Conception, External Approach (ICD-10-PCS; principal; 2021-06-07)
PROC: 10907ZC Drainage of Amniotic Fluid, Therapeutic from Products of Conception, Via Natural or Artificial Opening (ICD-10-PCS; 2021-06-07)
PROC: 3E033VJ Introduction of Other Hormone into Peripheral Vein, Percutaneous Approach (ICD-10-PCS; 2021-06-07)
DX: O99.824 Streptococcus B carrier state complicating childbirth (principal); Z37.0 Single live birth; O99.344 Other mental disorders complicating childbirth; F32.A Depression, unspecified; O99.333 Smoking (tobacco) complicating pregnancy, third trimester; F41.3 Other mixed anxiety disorders; O26.893 Other specified pregnancy related conditions, third trimester; R76.8 Other specified abnormal immunological findings in serum; Z3A.39 39 weeks gestation of pregnancy; Z86.16 Personal history of COVID-19
CPT/HCPCS: J0690; J2590; J7120

== ENCOUNTER 2021-11-23 10:36 | Emergency (ER) | payer MEDICAID ==
[~2021-11-23] VITALS: Ht 162.6 cm; Wt 81.8 kg
[2021-11-23] MEDS ORDERED: CLEOCIN HCL300 MG PO (12:22)
[2021-11-23 13:01] VITALS: BP 159/97; PULSE 92; TEMP 98.1
== END 2021-11-23 13:01 | disposition home or self-care (01) ==
LOC: COL.ER 10:36
DX: K04.7 Periapical abscess without sinus (principal); F17.210 Nicotine dependence, cigarettes, uncomplicated; Z88.0 Allergy status to penicillin

== ENCOUNTER 2023-12-04 12:38 | Emergency (ER) | payer MEDICAID ==
[~2023-12-04] VITALS: Ht 162.6 cm; Wt 86.4 kg
[2023-12-04] MEDS ORDERED: NS 1,000 ML IV ONE (13:15)
[2023-12-04] MEDS ORDERED: diphenhydrAMINE 50 MG/ML 1 ML VIAL IV ONE (13:15)
[2023-12-04 14:18] LABS: BASO % 0.5 % (0.0-2.0); EOS % 0.7 % (0.0-4.0); GRAN # 4.5 K/mm3 (1.4-6.5); GRAN % 74.9 % (42.2-75.2); HEMATOCRIT 43.1 % (37.0-47.0); HEMOGLOBIN 15.2 g/dl (12.5-16.0); LYMPH # 1.1 K/mm3 (1.2-3.4); LYMPH % 17.6 % (20.0-51.0); MEAN CELL VOLUME 92 fl (80.0-100.0); MEAN CORPUSCULAR HEMOGLOBIN 32 pg (27-31); MEAN CORPUSCULAR HGB CONC 35 g/dl (33.0-37.0); MEAN PLATELET VOLUME 11.7 fl (7.4-10.4); MONO # 0.4 K/mm3 (0.1-0.6); PLATELET COUNT 322 K/mm3 (130-400); RED BLOOD COUNT 4.71 M/mm3 (4.10-5.30); REDCELL DISTRIBUTION WIDTH-CV 12.6 % (11.5-14.5)
[2023-12-04 14:31] LABS: ERYTHROCYTE SEDIMENTATION RATE 17 mm/hr (0-20)
[2023-12-04] MEDS ORDERED: Ketorolac 30 MG/ML VIAL IV ONE (15:00)
[2023-12-04 16:15] LABS: ALBUMIN 3.7 g/dL (3.5-5.0); BILIRUBIN,TOTAL 0.4 mg/dL (0.2-1.2); C-REACTIVE PROTEIN 0.33 mg/dL (0.00-0.50); CALCIUM 8.6 mg/dL (8.4-10.2); CREATININE, serum 0.65 mg/dL (0.57-1.11); POTASSIUM 4.1 mEq/L (3.5-4.5); TOTAL PROTEIN 7.1 g/dl (6.2-8.1)
[2023-12-04 16:48] VITALS: BP 128/74; PULSE 80; TEMP 98.4
== END 2023-12-04 16:48 | disposition home or self-care (01) ==
LOC: COL.ER 12:38
PROVIDERS: Nurse Practitioner
DX: R51.9 Headache, unspecified (principal); F17.210 Nicotine dependence, cigarettes, uncomplicated
CPT/HCPCS: J1200; J1885; J2765; J7030